=== PATIENT | female | born 1955 | race Caucasian/White ===

== ENCOUNTER → 2017-08-10 | Outpatient (CLI) | payer OTHER | LOC: FIMAGING 09:18 | PROVIDERS: ATTEND Nurse Practitioner Women's Health | DX: Z12.31 Encounter for screening mammogram for malignant neoplasm of breast (principal) | CPT/HCPCS: G0202 ==

== ENCOUNTER → 2018-08-14 | Outpatient (CLI) | payer OTHER | LOC: FIMAGING 09:43 | PROVIDERS: ATTEND Nurse Practitioner Women's Health | DX: Z12.31 Encounter for screening mammogram for malignant neoplasm of breast (principal) ==

== ENCOUNTER 2018-09-28 09:39 | Day surgery (SDC) | payer OTHER ==
[2018-09-28] MEDS ORDERED: fentaNYL 100 MCG/2 ML INJ IVP ONE (09:42)
[2018-09-28] MEDS ORDERED: BENZOCAINE UNIT DOSE SPRAY HURRICAINE MM ONE (09:42)
[2018-09-28] MEDS ORDERED: MIDAZOLAM 2 MG/2 ML VIAL IVP ONE (09:42)
[2018-09-28] MEDS ORDERED: NS 500 ML IV ONE (09:42)
[2018-09-28] MEDS ORDERED: PROPOFOL 200 MG/20 ML VIAL ONE (11:09)
--- NOTE | 2018-09-28 11:12 | PDANEPAE ---
ANE Past Medical History - Cardiovascular History Hx Arrhythmias: Yes Hx CHF / Valvular Disease: Yes - Pulmonary History Hx Sleep Apnea: No ANE Review of Systems Review of Systems: ANE Patient History - Allergies Allergies/Adverse Reactions: cyclobenzaprine HCl [From Flexeril] Allergy (Verified 04/18/15 22:29) Penicillins Allergy (Verified 04/18/15 22:13) Hives - Home Medications Home Medications: Hydrocodone/Acetaminophen [Hydrocodon-Acetaminoph 2.5-325] 04/18/15 [Last Taken Unknown] SUMAtriptan [Imitrex 25 MG (RX)] 04/18/15 [Last Taken Unknown] - Smoking Hx Smoking Status: Never smoked ANE Labs/Vital Signs - Vital Signs Height: 165.1 cm Weight: 58.967 kg ANE Physical Exam - Airway Mallampati Score: Class 2 - ASA Status ASA Status: III ANE Anesthesia Plan Total IV Anesthesia: Yes
--- NOTE | 2018-09-28 11:43 | PDHPUP ---
History & Physical Update H&P update statement: This history and physical update is based on an assessment of the patient which was completed after admission or registration (within 24 hours), but prior to the surgery/procedure. H&P update: H&P reviewed & patient examined, no change in patient's condition since H&P completed
[2018-09-28] MEDS ORDERED: ONDANSETRON 4 MG/2 ML VIAL IVP PRN (12:24)
[2018-09-28] MEDS ORDERED: NALOXONE HCL 0.4 MG/ML INJ IVP PRN (12:24)
[2018-09-28] MEDS ORDERED: LR 500 ML IV PRN (12:24)
--- NOTE | 2018-09-28 12:25 | POSTANESTH ---
Post Anesthetic Evaluation Cardiovascular Status: Similar to Pre-Op Cond Respiratory Status: Normal, Stable Level of Consciousness/Mental Status: Can Participate in Eval Pain Control: Adequate, Prn Tx Ordered Nausea/Vomiting Control: Adequate, Prn Tx Ordered Complications Possibly Related to Anesthesia: None Noted
--- NOTE | 2018-09-28 12:42 | CPR ---
DATE OF PROCEDURE: 09/28/2018 PROCEDURE PERFORMED: Transesophageal echocardiogram. 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 DESCRIPTION OF PROCEDURE: After informed consent was obtained, the patient was sedated with propofol . A bite block was in place. IZZY probe was passed without incident. IZZY probe was used to take yas ges of the mitral valve every 30 degrees with detailed imaging of all leaflets. Please see complete echocardiogram for full details. Imaging was also obtained at the tricuspid valve. Findingsdemonstrated evidence of healed endocarditis and mild eccentric jet of mitral regurgitation. There is no evidence of pulmonary vein flow reversal. Agitated saline contrast study was performed demonstrating no evidence of patent foramen ovale. Evaluation of tricuspid valve demonstrated mild t ricuspid regurgitation. Aortic valve was trileaflet with no evidence of aortic insufficiency. Patient tolerated the procedure well. IZZY probe was removed without incident. At the time of this d ictation, she is recovering from anesthesia. PLAN: We will contact Dr. 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 /[phone]/MODL
--- NOTE | 2018-09-28 16:38 | ECHO ---
[email or web address] [address] [address] Main: [phone] Fax: Transesophageal Echocardiography Name: MARIVEL DE LEON MR#: [id number] Study Date: 09/28/2018 Study Time: 11:16 AM Date of : 1955 Age: 63 year(s) Height: ( ) Weight: ( ) BSA: Gender: Female Examination: IZZY Indication: assess mitral valve Image Quality: Adequate Contrast: I.V. dose of agitated saline Requested by: Felix Celestin Heart Rate: Rhythm: BP: / Procedure Staff Center Director Lead Teacher: Alana Ness [facility] Reading Physician: Saravanan Sepulveda MD Requesting Provider: IZZY Exam Details Contrast: I.V. dose of agitated saline Conclusions: Normal size left ventricle. Normal global systolic LV function. Normal RV function. An agitated saline study was performed and was negative for intracardiac shunting. No thrombus in left appendage. The anterior mitral leaflet is thickened with mild prolapse. There is a small echo density most likely attached to the anterior mitral leaflet. It is bright which is consistent with old vegetation. Moderate mitral regurgitation which is eccentric and posteriorly directed consistent with anterior leaflet pathology. There is no pulmonary vein reversal and waveforms are not blunted.. Mild tricuspid regurgitation is present. Measurements: Chambers Valvular Assessment AV/MV Valvular Assessment TV/PV Normal Normal Normal Name Value Range Name Value Range Name Value Range Additional Measurements: Findings: Left Ventricle: Normal size left ventricle. Normal global systolic LV function. Right Ventricle: Patient: MARIVEL DE LEON Study Date: 09/28/2018 Page 1 of 2 11:16 AM Normal size right ventricle. Normal RV function. Left Atrium: An agitated saline study was performed and was negative for intracardiac shunting. Left Atrial Appendage: No thrombus in left appendage. Mitral Valve: The anterior mitral leaflet is thickened with mild prolapse. There is a small echo density most likely attached to the anterior mitral leaflet. It is bright which is consistent with old vegetation. Moderate mitral regurgitation which is eccentric and posteriorly directed consistent with anterior leaflet pathology. There is no pulmonary vein reversal and waveforms are not blunted.. Aortic Valve: The aortic valve is tri-leaflet and functions normally. There is no aortic valve regurgitation. No aortic valve stenosis is present. Tricuspid Valve: The tricuspid valve is normal in appearance and function. Mild tricuspid regurgitation is present. Pulmonic Valve: The pulmonic valve is normal in appearance and function. There is no pulmonic regurgitation seen. Pericardium: No pericardial effusion. l1n (No Signature Object) Patient: MARIVEL DE LEON Study Date: 09/28/2018 Page 2 of 2 11:16 AM [id number]
== END 2018-09-28 13:07 | disposition home or self-care (01) ==
LOC: FCATH 09:39
PROVIDERS: ATTEND Thoracic Surgery (Cardiothoracic Vascular Surgery)
PROC: B246ZZ4 Ultrasonography of Right and Left Heart, Transesophageal (ICD-10-PCS; principal; 2018-09-28)
DX: I34.0 Nonrheumatic mitral (valve) insufficiency (principal); I07.1 Rheumatic tricuspid insufficiency; I10 Essential (primary) hypertension; R01.1 Cardiac murmur, unspecified; G43.909 Migraine, unspecified, not intractable, without status migrainosus; Z86.79 Personal history of other diseases of the circulatory system; Z82.49 Family history of ischemic heart disease and other diseases of the circulatory system; Z88.0 Allergy status to penicillin
CPT/HCPCS: J2704

== ENCOUNTER → 2018-11-13 | Outpatient (CLI) | payer OTHER | LOC: CIMAGING 11:23 | PROVIDERS: ATTEND Family Medicine | DX: J40 Bronchitis, not specified as acute or chronic (principal) | CPT/HCPCS: 71046-PO ==